=== PATIENT | female | born 1935 | race Caucasian/White ===

== ENCOUNTER 2017-07-09 11:25 | Outpatient (CLI) | payer MEDICARE, BC | END 2017-07-09 11:26 | disposition home or self-care (01) | LOC: BICMAMMO 11:25 | PROVIDERS: ATTEND Family Medicine | DX: Z12.31 Encounter for screening mammogram for malignant neoplasm of breast (principal) | CPT/HCPCS: 77063; 77067 ==

== ENCOUNTER 2017-11-08 06:06 | Day surgery (SDC) | payer MEDICARE, BC ==
[2017-11-07 10:44] VITALS: BMI 36.3
[2017-11-08] MEDS ORDERED: PROPOFOL 20 ML ONE (08:21)
--- NOTE | 2017-11-08 09:05 | ECHO ---
TRANSESOPHAGEAL ECHOCARDIOGRAM: DATE OF PROCEDURE: 11/08/17 INDICATION: 82-year-old woman with a bioprosthetic valve and permanent atrial fibrillation. DESCRIPTION OF PROCEDURE: The patient was taken to the PACU. The patient was sedated by anesthesiology. A transesophageal probe was placed in the distal esophagus and stomach. Echocardiographic images were obtained. The transesophageal probe was removed. FINDINGS: 1. Normal left ventricular systolic function. 2. Marked left atrial enlargement. 3. The right atrium is enlarged. 4. Normal functioning bioprosthetic aortic valve. 5. Moderate mitral regurgitation. 6. Moderate tricuspid regurgitation. 7. There is a leak noted in the left atrial appendage, in which left atrial appendage was not oversewn. 8. Atherosclerotic debris in the descending aorta. IMPRESSION: The left atrial appendage is not oversewn as there is flow into the left atrium. MTDD
== END 2017-11-08 09:32 | disposition home or self-care (01) ==
LOC: CCL 06:06
PROVIDERS: ATTEND Internal Medicine Cardiovascular Disease
PROC: B24BZZ4 Ultrasonography of Heart with Aorta, Transesophageal (ICD-10-PCS; principal; 2017-11-08)
DX: I48.2 Chronic atrial fibrillation (principal); I70.0 Atherosclerosis of aorta; I08.1 Rheumatic disorders of both mitral and tricuspid valves; I10 Essential (primary) hypertension; I25.10 Atherosclerotic heart disease of native coronary artery without angina pectoris; E78.00 Pure hypercholesterolemia, unspecified; Z79.01 Long term (current) use of anticoagulants; Z79.899 Other long term (current) drug therapy; Z88.8 Allergy status to other drugs, medicaments and biological substances; Z91.040 Latex allergy status; Z95.1 Presence of aortocoronary bypass graft; Z95.2 Presence of prosthetic heart valve
CPT/HCPCS: 93312; J2704

== ENCOUNTER 2018-07-11 09:56 | Outpatient (CLI) | payer MEDICARE, BC ==
--- NOTE | 2018-07-11 11:35 | MMO ---
Bilateral MAMMO Bilat Screen [facility]. CLINICAL HISTORY: Patient is 82 years old and is seen for screening. The patient has no family history of breast cancer. The patient has no personal history of cancer. VIEWS: The views performed were: bilateral craniocaudal and bilateral mediolateral oblique. FILMS COMPARED: The present examination has been compared to prior imaging studies performed at [facility] on 01/14/2013, 06/08/2014, 07/02/2015, 07/06/2016 and 07/09/2017. This study has been interpreted with the assistance of computer-aided detection. MAMMOGRAM FINDINGS: There are scattered fibroglandular densities. There are stable benign appearing calcifications seen in both breasts. There are also vascular calcifications. There are no suspicious masses, suspicious calcifications, or new areas of architectural distortion. IMPRESSION: THERE IS NO MAMMOGRAPHIC EVIDENCE OF MALIGNANCY. A ROUTINE FOLLOW-UP MAMMOGRAM IN 1 YEAR IS RECOMMENDED. ACR BI-RADS Category 2 - Benign finding MAMMOGRAPHY NOTE: 1. A negative mammogram report should not delay a biopsy if a dominant of clinically suspicious mass is present. 2. Approximately 10% to 15% of breast cancers are not detected by mammography. 3. Adenosis and dense breasts may obscure an underlying neoplasm.
== END 2018-07-11 09:57 | disposition home or self-care (01) ==
LOC: SCSMAMMO 09:56
PROVIDERS: ATTEND Family Medicine
DX: Z12.31 Encounter for screening mammogram for malignant neoplasm of breast (principal)
CPT/HCPCS: 77067

== ENCOUNTER 2019-07-17 11:20 | Outpatient (CLI) | payer MEDICARE, BC ==
--- NOTE | 2019-07-17 13:12 | MMO ---
Bilateral MAMMO Bilat Screen [facility]. CLINICAL HISTORY: Patient is 83 years old and is seen for screening. The patient has no family history of breast cancer. The patient has no personal history of cancer. VIEWS: The views performed were: bilateral craniocaudal with tomosynthesis and bilateral mediolateral oblique with tomosynthesis. FILMS COMPARED: The present examination has been compared to prior imaging studies performed at [facility] on 07/11/2018, and at [facility] on 07/02/2015, 07/06/2016 and 07/09/2017. This study has been interpreted with the assistance of computer-aided detection. MAMMOGRAM FINDINGS: There are scattered fibroglandular densities. Benign calcifications are noted bilaterally. There are no suspicious masses, suspicious calcifications, or new areas of architectural distortion. IMPRESSION: THERE IS NO MAMMOGRAPHIC EVIDENCE OF MALIGNANCY. A ROUTINE FOLLOW-UP MAMMOGRAM IN 1 YEAR IS RECOMMENDED. THE RESULTS OF THIS EXAM WERE SENT TO THE PATIENT. ACR BI-RADS Category 2 - Benign finding MAMMOGRAPHY NOTE: 1. A negative mammogram report should not delay a biopsy if a dominant of clinically suspicious mass is present. 2. Approximately 10% to 15% of breast cancers are not detected by mammography. 3. Adenosis and dense breasts may obscure an underlying neoplasm. Reported by: MARLENE HAN MD Electonically Signed: [id number]
== END 2019-07-17 11:21 | disposition home or self-care (01) ==
LOC: BICMAMMO 11:20
PROVIDERS: ATTEND Family Medicine
DX: Z12.31 Encounter for screening mammogram for malignant neoplasm of breast (principal)
CPT/HCPCS: 77063; 77067

== ENCOUNTER 2019-11-28 08:43 | Outpatient (CLI) | payer MEDICARE, BC ==
--- NOTE | 2019-11-28 10:01 | MRI ---
MR the lumbar spine without contrast: 11/28/2019 History: Chronic back pain, lumbar stenosis COMPARISON: None available TECHNIQUE: Multiplanar multisequence MR images were obtained of lumbar spine without IV contrast FINDINGS: On the basis of 5 lumbar type vertebral bodies, conus medullaris terminates at [id number] level. The sagittal STIR imaging demonstrates mild edematous endplate change involving the inferior endplate of the L5 vertebral body. T12-L1:Bilateral facet hypertrophy, left greater than right. There is disc space narrowing with minim al disc bulge and disc desiccation. Mild central canal stenosis. Anterior osteophyte formation. Mild left neural foraminal stenosis. L1-2:Disc space narrowing with disc desiccation and mild disc bulge. Bilateral facet hypertrophy, lef t greater than right. Mild central canal stenosis with moderate left neural foraminal stenosis/left lateral recess stenosis. Mild right neural foraminal stenosis. L2-3:Bilateral facet hypertrophy with disc space narrowing, disc desiccation, anterior osteophyte for mation, and disc bulge. Mild central canal stenosis with moderate left neural foraminal stenosis/left lateral recess stenosis. Mild right neural foraminal stenosis. L3-4:Prominent bilateral facet hypertrophy, right greater than left. Disc space narrowing with disc d esiccation and disc osteophyte complex. Moderate central canal stenosis, moderate left, and severe right neural foraminal stenosis. Prominent right lateral recess stenosis. L4-5:Disc space narrowing with disc desiccation. Mild disc bulge and bilateral facet hypertrophy. Mil d central canal stenosis, mild left neural foraminal stenosis, and moderate right neural foraminal stenosis. L5-S1:There is disc space narrowing with disc desiccation and degenerative endplate change, primarily right-sided. There is prominent bilateral facet hypertrophy, especially on the right. These findings cause severe right neural foraminal stenosis and right lateral recess stenosis. Mild left ne ural foraminal stenosis. Image retroperitoneal structures demonstrateno acute findings. IMPRESSION: Prominent multilevel lumbar spine degenerative change as detailed above.
== END 2019-11-28 08:44 | disposition home or self-care (01) ==
LOC: SCSMRI 08:43
PROVIDERS: ATTEND Physical Medicine & Rehabilitation
DX: M48.07 Spinal stenosis, lumbosacral region (principal); M47.817 Spondylosis without myelopathy or radiculopathy, lumbosacral region; M47.816 Spondylosis without myelopathy or radiculopathy, lumbar region
CPT/HCPCS: 72148

== ENCOUNTER 2020-07-26 09:11 | Outpatient (CLI) | payer MEDICARE, BC | END 2020-07-26 09:12 | disposition home or self-care (01) | LOC: BICMAMMO 09:11 | PROVIDERS: ATTEND Family Medicine | DX: Z12.31 Encounter for screening mammogram for malignant neoplasm of breast (principal) | CPT/HCPCS: 77063; 77067 ==

== ENCOUNTER 2021-03-30 10:48 | Observation (INO) | payer MEDICARE, BC ==
[2021-03-30] MEDS ORDERED: hydrALAZINE 20 MG/ML VIAL SLOW IVP PRN (13:13)
[2021-03-30] MEDS ORDERED: Aspirin 81 mg Enteric Coated Tablet PO SCH (13:15)
[2021-03-30] MEDS ORDERED: Ondansetron ODT 4 MG TAB PO PRN (13:20)
[2021-03-30] MEDS ORDERED: Senokot S 8.6-50 MG TAB PO PRN (13:20)
[2021-03-30] MEDS ORDERED: Acetaminophen 500 MG TAB ONE (18:43)
[2021-03-30] MEDS: Atorvastatin Calcium 10 MG TAB PO SCH (21:55)
[2021-03-30] MEDS: Apixaban 5 MG TAB PO SCH (22:32)
[2021-03-31 00:45] VITALS: BMI 36.5
[2021-03-31 03:05] LABS: #Basophils 0.1 thou/uL (0.0-0.2); #Eosinphils 0.1 thou/uL (0.0-0.7); #Lymphocytes 2.4 thou/uL (1.20-3.40); #Monocytes 0.9 thou/uL (0.11-0.59); #Neutrophils 4.4 thou/uL (1.40-6.50); %Basophils 0.8 % (0.0-1.0); %Eosinophils 1.8 % (0.0-10.0); %Lymphocytes 30.2 % (21.0-51.0); %Monocytes 11.5 % (0.0-10.0); %Neutrophils 55.7 % (42.0-75.0); Mean Corpuscular HGB CONC 32.7 g/dL (32.0-36.0); Mean Corpuscular Volume 91.6 fL (78.0-98.0); Mean Platelet Volume 6.8 fL (7.4-10.4); Platelet Count 243 thou/uL (130-400); RBC Distribution Width 11.9 % (11.5-14.5); Red Blood Cell (RBC) Count 4.01 mill/uL (4.20-5.40); White Blood Cell (WBC) Count 7.9 thou/uL (4.8-10.8)
[2021-03-31 03:31] LABS: Anion Gap 13 mmol/L (10-20); BUN (Urea Nitrogen) 13 mg/dL (9.8-20.1); Calc. Creatinine Clearance 87 mL/min (70-130); Calcium 9.5 mg/dL (7.8-10.44); Carbon Dioxide 28 mmol/L (23-31); Cardiac Risk 2.2 (Less than 4.5); Chloride 105 mmol/L (98-107); Cholesterol 116 mg/dl (< 200 Desired); Glucose 105 mg/dL (83-110); HDL Cholesterol 52 mg/dL (>60 Neg Risk); LDL Cholesterol, Calculated 49 mg/dL; Potassium 3.6 mmol/L (3.5-5.1); Sodium 142 mmol/L (136-145); Triglycerides 73 mg/dL (Less than 150)
[2021-03-31] MEDS: Acetaminophen 500 MG TAB PO PRN ×4 (04:04→21:03)
[2021-03-31 05:21] LABS: Thyroid Stimulating Hormone 2.4556 uIU/mL (0.35-4.94)
[2021-03-31] MEDS ORDERED: Aspirin 81 mg Enteric Coated Tablet PO SCH (09:00)
[2021-03-31] MEDS: Apixaban 5 MG TAB PO SCH ×2 (09:16→21:03)
[2021-03-31] MEDS ORDERED: Pregabalin 50 MG CAP PO SCH (13:00)
[2021-03-31] MEDS: Pregabalin 50 MG CAP PO SCH ×3 (13:05→21:05)
[2021-03-31] MEDS: Atorvastatin Calcium 10 MG TAB PO SCH (21:03)
[2021-04-01] MEDS: Pregabalin 50 MG CAP PO SCH ×3 (02:02→08:23)
[2021-04-01] MEDS: Acetaminophen 500 MG TAB PO PRN (06:11)
[2021-04-01] MEDS: Apixaban 5 MG TAB PO SCH (08:13)
[2021-04-01] MEDS ORDERED: Non-Formulary Item 1 EACH (Famotidine [Pepcid] 40 MG Tablet) PO SCH (09:00)
[2021-04-01] MEDS ORDERED: Non-Formulary Item 1 EACH (Cholecalciferol (Vitamin D3) [Vitamin D] 1000 UNIT Capsule) PO SCH (09:00)
[2021-04-01] MEDS ORDERED: Famotidine 20 MG TAB PO SCH (09:00)
[2021-04-01] MEDS ORDERED: Diltiazem HCl CD 300 mg Capsule PO SCH (09:00)
[2021-04-01] MEDS ORDERED: Cholecalciferol 1,000 UNITS (25 MCG) TAB PO SCH (09:00)
[2021-04-01 10:16] VITALS: BP 128/88; TEMP 97.8
== END 2021-04-01 10:45 | disposition home or self-care (01) ==
LOC: ERS 10:48 → ERHOLD 12:29 → NEURO 03-31 00:15
PROVIDERS: ADMIT Family Medicine; ATTEND Family Medicine
DX: M48.02 Spinal stenosis, cervical region (principal); I08.3 Combined rheumatic disorders of mitral, aortic and tricuspid valves; I25.10 Atherosclerotic heart disease of native coronary artery without angina pectoris; I48.21 Permanent atrial fibrillation; I11.9 Hypertensive heart disease without heart failure; E78.5 Hyperlipidemia, unspecified; K21.9 Gastro-esophageal reflux disease without esophagitis; G95.89 Other specified diseases of spinal cord; M47.812 Spondylosis without myelopathy or radiculopathy, cervical region; M43.12 Spondylolisthesis, cervical region; G99.2 Myelopathy in diseases classified elsewhere; M25.78 Osteophyte, vertebrae; Z86.73 Personal history of transient ischemic attack (TIA), and cerebral infarction without residual deficits; Z79.01 Long term (current) use of anticoagulants; Z79.899 Other long term (current) drug therapy; Z91.040 Latex allergy status; Z95.1 Presence of aortocoronary bypass graft; Z95.2 Presence of prosthetic heart valve
CPT/HCPCS: 70551; 72141; 80048; 80061; 82607; 82746; 84443; 85025; 93005; 93306; 93880; 97139 ×4; 99285; G0378 ×3; 36415

== ENCOUNTER 2021-07-28 10:51 | Outpatient (CLI) | payer MEDICARE, BC | END 2021-07-28 10:52 | disposition home or self-care (01) | LOC: BICMAMMO 10:51 | PROVIDERS: ATTEND Family Medicine | DX: Z12.31 Encounter for screening mammogram for malignant neoplasm of breast (principal) | CPT/HCPCS: 77063; 77067 ==

== ENCOUNTER 2021-08-12 13:58 | Outpatient (CLI) | payer MEDICARE, BC | END 2021-08-12 13:59 | disposition home or self-care (01) | LOC: BICULT 13:58 | PROVIDERS: ATTEND Family Medicine | DX: R35.89 Other polyuria (principal) | CPT/HCPCS: 76856 ==

== ENCOUNTER 2022-04-28 08:43 | Outpatient (CLI) | payer MEDICARE, BC ==
[2022-04-28] MEDS ORDERED: Magnevist 469MG/ML 20 ML VIAL ONE (14:11)
== END 2022-04-28 08:44 | disposition home or self-care (01) ==
LOC: MRI 08:43
PROVIDERS: ATTEND Family Medicine
DX: R42 Dizziness and giddiness (principal); I67.82 Cerebral ischemia
CPT/HCPCS: 70553; A9579

== ENCOUNTER 2023-05-11 12:55 | Outpatient (CLI) | payer MEDICARE, BC | END 2023-05-11 12:56 | disposition home or self-care (01) | LOC: BICCT 12:55 | PROVIDERS: ATTEND Family Medicine | DX: R31.29 Other microscopic hematuria (principal); I51.7 Cardiomegaly; K57.30 Diverticulosis of large intestine without perforation or abscess without bleeding; M47.816 Spondylosis without myelopathy or radiculopathy, lumbar region; K31.89 Other diseases of stomach and duodenum; N28.1 Cyst of kidney, acquired | CPT/HCPCS: 74178 ==

== ENCOUNTER 2024-12-23 09:46 | Outpatient (CLI) | payer MEDICARE, BC | END 2024-12-23 09:47 | disposition home or self-care (01) | LOC: LABBT 09:46 | PROVIDERS: ATTEND Internal Medicine Cardiovascular Disease | DX: Z01.818 Encounter for other preprocedural examination (principal); I48.21 Permanent atrial fibrillation | CPT/HCPCS: 93005; 93010 ==